=== PATIENT | female | born 1940 | race Caucasian/White ===

== ENCOUNTER 2016-09-04 07:22 | Day surgery (SDC) | payer OTHER ==
[2016-09-04] VITALS (7 sets, daily range): BP systolic 129–133; BP diastolic 53–59
[~2016-09-04] VITALS: Ht 137.2 cm; Wt 48.5 kg
--- NOTE | 2016-09-04 10:35 | NUR ---
RECEIVED PATIENT POST ANGIOGRAM VIA GUERNY FROM C[facility]. LAB. DROWSY AND ORIENTED. RESP. REG. AND EVEN WITH OUT DISTRESS NOTED. NO SOB NOTED. DENIES CHEST PAIN AT THIS TIME. NO C/O OR DISTRESS NOTED.
--- NOTE | 2016-09-04 11:29 | NUR ---
INSTRUCTED PATIENT TO LAY FLAT AND KEEP LT. LEG STRAIGHT WITH VERBAL RESPONSE OF UNDERSTANDING. DAUGHTER AT THE BEDSIDE.
--- NOTE | 2016-09-04 12:35 | NUR ---
TRANSFERRED BACK TO [facility]. VIA [facility] PER AMBULANCE. ALERT AND ORIENTED. RESP. REG. AND EVEN WITH OUT DISTRESS NOTED. NO SOB NOTED. DENIES CHEST PAIN AT THIS TIME. REPORT GIVEN TO MARK VELAZQUEZ. NO C/O OR DISTRESS NOTED.
== END 2016-09-04 12:35 | disposition short-term general hospital (02) ==
LOC: DS 07:22
PROVIDERS: Surgery
PROC: 047T3ZZ Dilation of Right Peroneal Artery, Percutaneous Approach (ICD-10-PCS; 2016-09-04)
PROC: 047P3ZZ Dilation of Right Anterior Tibial Artery, Percutaneous Approach (ICD-10-PCS; 2016-09-04)
PROC: B41FYZZ Fluoroscopy of Right Lower Extremity Arteries using Other Contrast (ICD-10-PCS; 2016-09-04)
PROC: 047M3DZ Dilation of Right Popliteal Artery with Intraluminal Device, Percutaneous Approach (ICD-10-PCS; principal; 2016-09-04 09:30)
DX: E11.52 Type 2 diabetes mellitus with diabetic peripheral angiopathy with gangrene (principal); I10 Essential (primary) hypertension; Z79.4 Long term (current) use of insulin
CPT/HCPCS: 37224; 37226; 37228; 82962; C1725; C1729; C1760; C1769; C1876; C1894; J1644; J2001; J2250; J7040; Q9967

== ENCOUNTER 2018-08-27 10:04 | Inpatient (IN) | payer OTHER ==
[~2018-08-27] VITALS: Ht 154.9 cm; Wt 60.9 kg
[2018-08-27 12:03] LABS: BASOPHIL % 0.3 % (0-2); CALCIUM 9.3 mg/dL (8.5-10.1); CHLORIDE SERUM 94 mmol/L (98-107); CREATININE SERUM 3.9 mg/dL (0.6-1.0); GLUCOSE SERUM 118 mg/dL (74-106); POTASSIUM SERUM 5.2 mmol/L (3.5-5.1); SODIUM SERUM 129 mmol/L (136-145)
[2018-08-27 12:05] LABS: ALKALINE PHOSPHATASE 120 U/L (46-116); ALT/SGPT 12 U/L (14-59); AST/SGOT 21 U/L (15-37); BILIRUBIN TOTAL 0.6 mg/dL (0.20-1.00); TOTAL PROTEIN, SERUM 8.2 g/dL (6.4-8.2)
[2018-08-27 12:09] LABS: PLATELET COUNT 403 x10^3mcL (130-400)
[2018-08-27 12:28] LABS: ALBUMIN 2.9 g/dL (3.4-5.0)
[2018-08-27] MEDS ORDERED: ENALAPRIL MALE2.5 MG (12:47)
[2018-08-27] MEDS ORDERED: COLACE100 MG ×2 (12:47→12:48)
[2018-08-27] MEDS ORDERED: NATURE'S BLEND500 MG (12:48)
[2018-08-27] MEDS ORDERED: CIPRO250 MG (12:48)
[2018-08-27] MEDS ORDERED: NOR10T (12:48)
[2018-08-27] MEDS ORDERED: ASPIR 8181 MG (12:48)
[2018-08-27] MEDS ORDERED: TOPROL XL25 MG (12:48)
[2018-08-27] MEDS ORDERED: LANTUS SOLOS100 U/M1 (12:48)
[2018-08-27] MEDS ORDERED: APIDRA100 U/M1 (12:48)
[2018-08-27] MEDS ORDERED: NEPHRO-VITE VITA1 EA (12:48)
[2018-08-27] MEDS ORDERED: GOOD NEIGH1200 MG/15 (12:49)
[2018-08-27] MEDS ORDERED: SENOKOT8.6 MG (12:49)
[2018-08-27 13:36] LABS: MAGNESIUM 2.6 mg/dL (1.8-2.4); PHOSPHOROUS 3.6 mg/dL (2.5-4.9)
[2018-08-27 15:51] VITALS: BP 113/40
[2018-08-28 04:32] VITALS: BP 139/48
[2018-08-28 06:36] VITALS: BP 126/43
[2018-08-28 10:30] LABS: BASOPHIL % 0.2 % (0-2); PLATELET COUNT 359 x10^3mcL (130-400)
[2018-08-28 10:33] LABS: RED CELL DISTRIBUTION WIDTH 20.2 % (11.5-14.5)
[2018-08-28 12:25] LABS: CALCIUM 8.9 mg/dL (8.5-10.1); CARBON DIOXIDE 31.1 mmol/L (21-32); CHLORIDE SERUM 100 mmol/L (98-107); GLUCOSE SERUM 152 mg/dL (74-106); POTASSIUM SERUM 3.9 mmol/L (3.5-5.1); SODIUM SERUM 137 mmol/L (136-145)
[2018-08-28 16:58] VITALS: BP 113/42
[2018-08-28 21:14] VITALS: BP 111/41
[2018-08-29 05:18] VITALS: BP 113/51
[2018-08-29 06:21] LABS: PLATELET COUNT 358 x10^3mcL (130-400)
[2018-08-29 06:38] LABS: CALCIUM 8.7 mg/dL (8.5-10.1); CARBON DIOXIDE 26.8 mmol/L (21-32); CHLORIDE SERUM 100 mmol/L (98-107); CREATININE SERUM 3.3 mg/dL (0.6-1.0); GLUCOSE SERUM 106 mg/dL (74-106); MAGNESIUM 2.1 mg/dL (1.8-2.4); PHOSPHOROUS 3.4 mg/dL (2.5-4.9); POTASSIUM SERUM 4.4 mmol/L (3.5-5.1); SODIUM SERUM 136 mmol/L (136-145); URIC ACID 3.2 mg/dL (2.6-6.0)
[2018-08-29 07:14] LABS: RED CELL DISTRIBUTION WIDTH 19.8 % (11.5-14.5)
[2018-08-29 09:52] VITALS: BP 127/49
[2018-08-29 11:30] LABS: BAND NEUTROPHIL 14 % (0-10); BASOPHIL 0 % (0-2); MONOCYTE 2 % (0-7); PLATELET MORPHOLOGY PLATELETS NORMAL; SEGMENTED NEUTROPHILS 74 % (37-75); rbc morphology (normal/abnorm) NORMAL (NORMAL)
[2018-08-29 13:44] VITALS: BP 123/46
[2018-08-29 16:24] VITALS: BP 101/37
[2018-08-29 20:22] VITALS: BP 113/63
[2018-08-30 05:36] VITALS: BP 107/37
[2018-08-30 07:58] LABS: PLATELET COUNT 385 x10^3mcL (130-400)
[2018-08-30 08:07] LABS: RED CELL DISTRIBUTION WIDTH 20.3 % (11.5-14.5)
[2018-08-30 08:09] LABS: CALCIUM 8.4 mg/dL (8.5-10.1); CARBON DIOXIDE 24.5 mmol/L (21-32); CHLORIDE SERUM 101 mmol/L (98-107); GLUCOSE SERUM 96 mg/dL (74-106); MAGNESIUM 2.1 mg/dL (1.8-2.4); PHOSPHOROUS 4.4 mg/dL (2.5-4.9); POTASSIUM SERUM 4.9 mmol/L (3.5-5.1); SODIUM SERUM 136 mmol/L (136-145)
[2018-08-30 08:12] LABS: CREATININE SERUM 4.3 mg/dL (0.6-1.0)
[2018-08-30 09:00] VITALS: BP 123/49
[2018-08-30 13:37] LABS: BAND NEUTROPHIL 5 % (0-10); BASOPHIL 0 % (0-2); MONOCYTE 4 % (0-7); SEGMENTED NEUTROPHILS 87 % (37-75)
[2018-08-30 13:38] LABS: rbc morphology (normal/abnorm) ABNORMAL (NORMAL)
[2018-08-30 13:39] LABS: PLATELET MORPHOLOGY PLATELETS INCREASED
[2018-08-30 14:26] VITALS: BP 114/41
[2018-08-30 18:00] VITALS: BP 111/35
[2018-08-30 22:02] VITALS: BP 111/41
[2018-08-31 05:54] VITALS: BP 81/30
[2018-08-31 06:47] VITALS: BP 98/40
[2018-08-31 07:10] LABS: BASOPHIL % 0.1 % (0-2); PLATELET COUNT 322 x10^3mcL (130-400)
[2018-08-31 07:24] LABS: RED CELL DISTRIBUTION WIDTH 19.8 % (11.5-14.5)
[2018-08-31 08:48] LABS: CALCIUM 8.7 mg/dL (8.5-10.1); CHLORIDE SERUM 102 mmol/L (98-107); CREATININE SERUM 3.1 mg/dL (0.6-1.0); GLUCOSE SERUM 123 mg/dL (74-106); POTASSIUM SERUM 4.1 mmol/L (3.5-5.1); SODIUM SERUM 139 mmol/L (136-145)
[2018-08-31 09:25] VITALS: BP 92/33
[2018-08-31 13:25] VITALS: BP 92/35
[2018-08-31 17:33] VITALS: BP 107/37
[2018-08-31 20:34] VITALS: BP 108/49
[2018-09-01 05:48] VITALS: BP 123/47
[2018-09-01 08:03] LABS: PLATELET COUNT 320 x10^3mcL (130-400)
[2018-09-01 08:24] LABS: RED CELL DISTRIBUTION WIDTH 18.6 % (11.5-14.5)
[2018-09-01 08:57] VITALS: BP 109/69
[2018-09-01 09:28] LABS: BAND NEUTROPHIL 2 % (0-10); MONOCYTE 4 % (0-7); SEGMENTED NEUTROPHILS 82 % (37-75)
[2018-09-01 09:29] LABS: PLATELET MORPHOLOGY PLATELETS NORMAL; rbc morphology (normal/abnorm) ABNORMAL (NORMAL)
[2018-09-01 10:05] LABS: CALCIUM 8.5 mg/dL (8.5-10.1); CARBON DIOXIDE 22.8 mmol/L (21-32); CHLORIDE SERUM 101 mmol/L (98-107); GLUCOSE SERUM 102 mg/dL (74-106); POTASSIUM SERUM 3.8 mmol/L (3.5-5.1); SODIUM SERUM 138 mmol/L (136-145)
[2018-09-01 10:08] LABS: CREATININE SERUM 4.3 mg/dL (0.6-1.0)
[2018-09-01 12:45] VITALS: BP 111/74
[2018-09-01 17:08] VITALS: BP 121/45
[2018-09-01 21:39] VITALS: BP 116/48
[2018-09-02] VITALS (9 sets, daily range): BP systolic 40–145; BP diastolic 20–47; Ht 154.9 cm; Wt 60.9 kg
[2018-09-02 07:19] LABS: CALCIUM 8.6 mg/dL (8.5-10.1); CARBON DIOXIDE 22.9 mmol/L (21-32); CHLORIDE SERUM 100 mmol/L (98-107); GLUCOSE SERUM 114 mg/dL (74-106); POTASSIUM SERUM 3.8 mmol/L (3.5-5.1); SODIUM SERUM 138 mmol/L (136-145)
[2018-09-02 07:51] LABS: PLATELET COUNT 335 x10^3mcL (130-400)
[2018-09-02 07:54] LABS: RED CELL DISTRIBUTION WIDTH 18.2 % (11.5-14.5)
[2018-09-02 14:32] LABS: BAND NEUTROPHIL 2 % (0-10); MONOCYTE 5 % (0-7); PLATELET MORPHOLOGY N; SEGMENTED NEUTROPHILS 76 % (37-75); rbc morphology (normal/abnorm) ABNORMAL (NORMAL)
[2018-09-02 16:39] LABS: CALCIUM 9.6 mg/dL (8.5-10.1); CARBON DIOXIDE 11.1 mmol/L (21-32); CHLORIDE SERUM 105 mmol/L (98-107); GLUCOSE SERUM 191 mg/dL (74-106); POTASSIUM SERUM 5.5 mmol/L (3.5-5.1); SODIUM SERUM 141 mmol/L (136-145)
[2018-09-02 16:43] LABS: CREATININE SERUM 5.6 mg/dL (0.6-1.0)
[2018-09-02 17:43] LABS: PLATELET COUNT 175 x10^3mcL (130-400)
[2018-09-02 17:54] LABS: RED CELL DISTRIBUTION WIDTH 19.2 % (11.5-14.5)
[2018-09-02 18:33] LABS: BAND NEUTROPHIL 3 % (0-10); BASOPHIL 0 % (0-2); MONOCYTE 3 % (0-7); SEGMENTED NEUTROPHILS 75 % (37-75)
[2018-09-02 18:34] LABS: rbc morphology (normal/abnorm) ABNORMAL (NORMAL)
[2018-09-03 00:10] VITALS: BP 68/26
[2018-09-03 01:20] VITALS: BP 30/18
== END 2018-09-03 01:40 | disposition expired | DRG 710 ==
LOC: ED 10:04 → MU 12:16 → DU 12:16 → IC 12:16 → MU 15:21 → DU 15:32 → IC 09-02 13:20
PROVIDERS: Anesthesiology; Emergency Medicine; Internal Medicine; Podiatrist; Surgery; ADMIT General Practice
PROC: 5A1D70Z Performance of Urinary Filtration, Intermittent, Less than 6 Hours Per Day (ICD-10-PCS; 2018-08-27)
PROC: 0Y6N0Z7 Detachment at Left Foot, Complete 4th Ray, Open Approach (ICD-10-PCS; principal; 2018-08-28 12:00)
PROC: 5A1D70Z Performance of Urinary Filtration, Intermittent, Less than 6 Hours Per Day (ICD-10-PCS; 2018-08-30)
PROC: 047L3DZ Dilation of Left Femoral Artery with Intraluminal Device, Percutaneous Approach (ICD-10-PCS; 2018-09-02)
PROC: 30233K1 Transfusion of Nonautologous Frozen Plasma into Peripheral Vein, Percutaneous Approach (ICD-10-PCS; 2018-09-02)
PROC: 30233N1 Transfusion of Nonautologous Red Blood Cells into Peripheral Vein, Percutaneous Approach (ICD-10-PCS; 2018-09-02)
PROC: 5A12012 Performance of Cardiac Output, Single, Manual (ICD-10-PCS; 2018-09-02)
PROC: 04HY32Z Insertion of Monitoring Device into Lower Artery, Percutaneous Approach (ICD-10-PCS; 2018-09-02)
PROC: B4101ZZ Fluoroscopy of Abdominal Aorta using Low Osmolar Contrast (ICD-10-PCS; 2018-09-02)
PROC: B41G1ZZ Fluoroscopy of Left Lower Extremity Arteries using Low Osmolar Contrast (ICD-10-PCS; 2018-09-02)
PROC: 047Q3ZZ Dilation of Left Anterior Tibial Artery, Percutaneous Approach (ICD-10-PCS; 2018-09-02)
PROC: 047U3ZZ Dilation of Left Peroneal Artery, Percutaneous Approach (ICD-10-PCS; 2018-09-02)
PROC: 06HY33Z Insertion of Infusion Device into Lower Vein, Percutaneous Approach (ICD-10-PCS; 2018-09-02)
PROC: B54BZZA Ultrasonography of Right Lower Extremity Veins, Guidance (ICD-10-PCS; 2018-09-02)
PROC: 5A1935Z Respiratory Ventilation, Less than 24 Consecutive Hours (ICD-10-PCS; 2018-09-02 13:00)
DX: A41.9 Sepsis, unspecified organism (principal); J96.20 Acute and chronic respiratory failure, unspecified whether with hypoxia or hypercapnia; I96 Gangrene, not elsewhere classified; E11.21 Type 2 diabetes mellitus with diabetic nephropathy; E11.42 Type 2 diabetes mellitus with diabetic polyneuropathy; E11.621 Type 2 diabetes mellitus with foot ulcer; I12.0 Hypertensive chronic kidney disease with stage 5 chronic kidney disease or end stage renal disease; E11.22 Type 2 diabetes mellitus with diabetic chronic kidney disease; R71.0 Precipitous drop in hematocrit; E11.52 Type 2 diabetes mellitus with diabetic peripheral angiopathy with gangrene; M86.8X7 Other osteomyelitis, ankle and foot; E83.41 Hypermagnesemia; E11.65 Type 2 diabetes mellitus with hyperglycemia; E11.69 Type 2 diabetes mellitus with other specified complication; L89.629 Pressure ulcer of left heel, unspecified stage; E87.8 Other disorders of electrolyte and fluid balance, not elsewhere classified; D63.8 Anemia in other chronic diseases classified elsewhere; I46.9 Cardiac arrest, cause unspecified; L97.521 Non-pressure chronic ulcer of other part of left foot limited to breakdown of skin; N18.6 End stage renal disease; E87.5 Hyperkalemia; E87.1 Hypo-osmolality and hyponatremia; Z96.641 Presence of right artificial hip joint; Z99.3 Dependence on wheelchair; Z99.2 Dependence on renal dialysis; Z79.4 Long term (current) use of insulin; Z98.891 History of uterine scar from previous surgery; Z89.432 Acquired absence of left foot
CPT/HCPCS: 31500; 36556; 36600; 82962; 83880; 97110-GP; 97112-GP; 97530-GP; C1760; C1769; C1887; C1894; C9113; J0171; J0610; J0885-EC; J1200; J1644; J1720; J2001; J2250; J2270; J2310; J2370; J2405; J2543; J3010; J3370; J3490; J7030; J7040; J7042; J7050; P9016; P9047; P9059; Q0092; Q9967